=== PATIENT | female | born 1950 | race African-American/Black ===

== ENCOUNTER 2016-10-31 11:22 | Outpatient (CLI) | payer MEDICARE, OTHER ==
[2015-11-30 14:04] VITALS: BP 177/78
== END 2016-10-31 11:23 ==
LOC: LAB 11:22
PROVIDERS: ATTEND Family Medicine
DX: Z51.81 Encounter for therapeutic drug level monitoring (principal); Z79.01 Long term (current) use of anticoagulants
CPT/HCPCS: 36415; 85610

== ENCOUNTER 2016-11-19 12:02 | Outpatient (CLI) | payer MEDICARE, OTHER ==
[2016-11-19 13:13] LABS: eGFR (African) > 60; eGFR (Non-African) > 60
--- NOTE | 2016-11-19 14:30 | ED Physician Documentation ---
General Adult - HISTORIAN Historian: patient - HPI Stated Complaint: elevated INR Chief Complaint: General Adult Onset: hours Timing: better Severity: mild Further Comments: yes (Patient is on coumadin therapy. Today had an INR done and was elevate >6. Patient states that she has had some bright red rectal bleeding today. Has had some diarrhea over the last several days. Has not been on any antibiotics.) - ROS CONST: no problems GI/: diarrhea. denies: abdominal pain, problems urinating, vomiting, nausea - PAST HX Past History: hypertension, other (DVT with PE, on chronic anticogulation therapy) Other History: other (morbid obesity). denies: diabetes Type 2 Surgeries/Procedures: other (tonsilectomy, carpal tunnel release) Immunizations: referred to PCP Allergies/Adverse Reactions: Allergies Allergy/AdvReac Type Severity Reaction Status Date / Time codeine Allergy Unknown Verified 11/19/16 14:21 Home Medications: Ambulatory Orders Medication Instructions Recorded Atenolol [Tenormin] 100 mg PO DAILY 11/19/16 Budesonide/Formoterol Fumarate 1 puff IH BID 11/19/16 [Symbicort 160-4.5 Mcg Inhaler] Furosemide [Furosemide] 20 mg PO DAILY 11/19/16 Gabapentin [Gabapentin] 1,200 mg PO HS 11/19/16 Gabapentin [Gabapentin] 400 mg PO TID 11/19/16 Medroxyprogesterone Acetate 10 mg PO DAILY 11/19/16 [Provera] Meloxicam [Mobic] 15 mg PO DAILY 11/19/16 Potassium Chloride [Klor-Con M20] 20 meq PO BID 11/19/16 Triamterene/Hydrochlorothiazid 0.5 each PO DAILY 11/19/16 [Triamterene-Hctz 75-50 mg Tab] Warfarin Sodium [Coumadin] 5 mg PO M1800 11/19/16 Warfarin Sodium [Coumadin] 5 mg PO [id number] 11/19/16 Warfarin Sodium [Coumadin] 7.5 mg PO [id number] 11/19/16 oxyCODONE HCL/ACETAMINOPHEN 1 each PO BID 11/19/16 [Percocet 5-325 mg Tablet] - SOCIAL HX Smoking History: non-smoker Alcohol Use: none Drug Use: none - FAMILY HX Family History: No - VITAL SIGNS Vital Signs: Vital Signs Temp Pulse Resp BP Pulse Ox 98.5 F 91 H 18 146/70 95 11/19/16 14:19 11/19/16 14:19 11/19/16 14:19 11/19/16 14:19 11/19/16 14:19 - REVIEWED ASSESSMENTS Nursing Assessment Reviewed: Yes Vitals Reviewed: Yes General Adult Physical Exam - PHYSICAL EXAM GENERAL APPEARANCE: no distress NECK: normal inspection, supple. No: stiff neck RESPIRATORY: no resp distress, chest non-tender, breath sounds normal. No: wheezes, rales, rhonchi CVS: reg rate & rhythm, heart sounds normal, no murmur ABDOMEN: soft, no organomegaly, normal bowel sounds, no abdominal bruit, no distension, other (morbid obesity) RECTAL: normal exam, normal rectal tone BACK: normal inspection, no CVA tenderness SKIN: warm/dry NEURO: oriented X3, mood/affect nml, cognition normal Discharge Clincal Impression: Elevated INR, Rectal bleeding Referrals: Diana Cutler MD [Primary Care Provider] - 2 Days Additional Instructions: Follow-up with Dr Cutler as scheduled. Have another INR done tomorrow. Continue to monitor for any further bleeding. Home Medications: Ambulatory Orders Atenolol [Tenormin] 100 mg PO DAILY 11/19/16 Budesonide/Formoterol Fumarate [Symbicort 160-4.5 Mcg Inhaler] 1 puff IH BID Furosemide [Furosemide] 20 mg PO DAILY 11/19/16 Gabapentin [Gabapentin] 1,200 mg PO HS 11/19/16 Gabapentin [Gabapentin] 400 mg PO TID 11/19/16 Medroxyprogesterone Acetate [Provera] 10 mg PO DAILY 11/19/16 Meloxicam [Mobic] 15 mg PO DAILY 11/19/16 Potassium Chloride [Klor-Con M20] 20 meq PO BID 11/19/16 Triamterene/Hydrochlorothiazid [Triamterene-Hctz 75-50 mg Tab] 0.5 each PO DAILY 11/19/16 Warfarin Sodium [Coumadin] 5 mg PO M1800 11/19/16 Warfarin Sodium [Coumadin] 5 mg PO [id number] 11/19/16 Warfarin Sodium [Coumadin] 7.5 mg PO [id number] 11/19/16 oxyCODONE HCL/ACETAMINOPHEN [Percocet 5-325 mg Tablet] 1 each PO BID 11/19/16 Condition: Stable Disposition: HOME, SELF-CARE Decision to Admit: NO Date of Decison to Admit: 11/19/16 Decision Time: 15:37
[2016-11-19] MEDS ORDERED: ONDANSETRON HCL 4 MG TAB.RAPDIS ONE (14:40)
[2016-11-19 14:52] LABS: BASOPHILS % 0.2 (0.0-1.5); EOSINOPHILS % 2.3 % (0.0-6.8); MONOCYTES # 0.3 # k/uL (0.0-0.9); MONOCYTES % 8.4 % (0.0-11.0); NEUTROPHILS # 1.7 # k/uL (1.4-7.7)
[2016-11-19] MEDS: ONDANSETRON HCL 4 MG TAB.RAPDIS PO PRN (15:07)
[2016-11-19] MEDS: PHYTONADIONE 10 MG/1 ML SUBCUT ONE (15:19)
[2016-11-19 16:41] VITALS: BP 150/72
[2016-11-20 13:11] LABS: ADENOVIRUS DNA NEGATIVE (NEGATIVE); BORDETELLA PERTUSSIS DNA NEGATIVE (NEGATIVE); SOURCE: SWAB IN M6
== END 2016-11-19 12:03 ==
LOC: LAB 12:02
PROVIDERS: ATTEND Family Medicine
DX: Z51.81 Encounter for therapeutic drug level monitoring (principal); Z79.01 Long term (current) use of anticoagulants
CPT/HCPCS: 36415; 80053; 85025; 85610; 87486; 87581; 87633; 87798; 99282; 99283; A9270; J3430

== ENCOUNTER 2016-11-20 11:17 | Outpatient (CLI) | payer MEDICARE, OTHER ==
[2016-11-19 16:41] VITALS: BP 150/72
== END 2016-11-20 11:20 ==
LOC: LAB 11:17
PROVIDERS: ATTEND Family Medicine
DX: Z51.81 Encounter for therapeutic drug level monitoring (principal); Z79.01 Long term (current) use of anticoagulants
CPT/HCPCS: 36415; 85610

== ENCOUNTER 2017-03-25 13:36 | Outpatient (CLI) | payer MEDICARE, OTHER | END 2017-03-25 13:37 | LOC: POD 13:36 | PROVIDERS: ATTEND Podiatrist | DX: L89.623 Pressure ulcer of left heel, stage 3 (principal) | CPT/HCPCS: G0463 ==

== ENCOUNTER 2017-04-08 13:24 | Outpatient (CLI) | payer MEDICARE, OTHER | END 2017-04-08 13:29 | disposition home or self-care (01) | LOC: POD 13:24 | PROVIDERS: ATTEND Podiatrist | DX: L89.893 Pressure ulcer of other site, stage 3 (principal) | CPT/HCPCS: 11042; G0463 ==

== ENCOUNTER 2017-05-06 13:41 | Outpatient (CLI) | payer MEDICARE, OTHER | END 2017-05-06 13:42 | LOC: POD 13:41 | PROVIDERS: ATTEND Podiatrist | DX: L89.613 Pressure ulcer of right heel, stage 3 (principal) | CPT/HCPCS: 11042; G0463 ==

== ENCOUNTER 2017-06-26 11:21 | Outpatient (CLI) | payer MEDICARE, OTHER ==
[2017-06-26 11:38] LABS: BASOPHILS % 0.9 (0.0-1.5); EOSINOPHILS % 1.8 % (0.0-6.8); MEAN CORPUSCULAR HEMOGLOBIN 31.5 pg (28.0-34.0); MEAN CORPUSCULAR VOLUME 94.2 fl (80.0-100.0); MONOCYTES % 5.3 % (0.0-11.0); NEUTROPHILS # 3.1 # k/uL (1.4-7.7)
== END 2017-06-26 11:22 ==
LOC: LAB 11:21
PROVIDERS: ATTEND Podiatrist
DX: M79.671 Pain in right foot (principal); M72.2 Plantar fascial fibromatosis; M21.41 Flat foot [pes planus] (acquired), right foot; M85.671 Other cyst of bone, right ankle and foot
CPT/HCPCS: 36415; 85025

== ENCOUNTER 2017-08-06 11:12 | Outpatient (CLI) | payer MEDICARE, OTHER | END 2017-08-06 11:13 | LOC: LAB 11:12 | PROVIDERS: ATTEND Family Medicine | DX: R73.9 Hyperglycemia, unspecified (principal) | CPT/HCPCS: 36415; 83036 ==

== ENCOUNTER 2018-01-08 14:15 | Outpatient (CLI) | payer MEDICARE, OTHER ==
[2018-01-08 15:22] LABS: eGFR (African) > 60; eGFR (Non-African) > 60
[2018-01-08 22:31] LABS: T3 TOTAL 96.5 ng/dL (80.0-200.0)
== END 2018-01-08 14:16 ==
LOC: LAB 14:15
PROVIDERS: ATTEND Family Medicine
DX: E03.9 Hypothyroidism, unspecified (principal); I10 Essential (primary) hypertension
CPT/HCPCS: 36415; 80048; 84439; 84443; 84480

== ENCOUNTER 2018-07-01 13:48 | Outpatient (CLI) | payer MEDICARE, OTHER | END 2018-07-01 13:50 | LOC: LAB 13:48 | PROVIDERS: ATTEND Family Medicine | DX: E03.9 Hypothyroidism, unspecified (principal) | CPT/HCPCS: 36415; 84443 ==

== ENCOUNTER 2018-10-08 11:40 | Outpatient (CLI) | payer MEDICARE, OTHER ==
[2018-10-08 13:38] LABS: eGFR (Non-African) > 60
== END 2018-10-08 11:45 | disposition home or self-care (01) ==
LOC: LAB 11:40
PROVIDERS: ATTEND Family Medicine
DX: R60.9 Edema, unspecified (principal)
CPT/HCPCS: 36415; 80053

== ENCOUNTER 2019-03-25 14:56 | Outpatient (CLI) | payer MEDICARE, OTHER ==
[2019-04-12 10:50] LABS: HDL 46 mg/dL (>40); eGFR (Non-African) > 60
== END 2019-03-25 15:03 | disposition home or self-care (01) ==
LOC: LAB 14:56
PROVIDERS: ATTEND Family Medicine
DX: E03.9 Hypothyroidism, unspecified (principal); I10 Essential (primary) hypertension
CPT/HCPCS: 36415; 80053; 80061; 84443